=== PATIENT | male | born 1960 | race Caucasian/White ===

== ENCOUNTER 2021-04-16 21:29 | Emergency (ER) | payer BC, SELFPAY ==
[2021-04-16 21:30] VITALS: BP 149/99; PULSE 73; RESP 16; TEMP 36.6; O2SAT 97; BMI 24.8
[2021-04-16 22:03] VITALS: BP 155/96; PULSE 63; O2SAT 94
--- NOTE | 2021-04-16 22:05 | HMH.EDSKAF ---
ED Disposition Clinical Impression: Foreign body in forearm Qualifiers: Encounter type: initial encounter Laterality: left Qualified Code(s): S50.852A - Superficial foreign body of left forearm, initial encounter Disposition: Home, Self-Care Condition on Discharge: Good Instructions: DI for Skin Abscess Additional Instructions: use meds and sutures out 10 days and recheck if any problems Prescriptions: Sulfamethoxazole/Trimethoprim [Bactrim DS tablet] 1 each PO BID #20 tab [facility] cephALEXin [cephALEXin 500mg capsule*] 500 mg PO TID #30 cap Transmission [facility]: [facility] Referrals: Provider,Referral, [Primary Care Provider] - - Critical Care Critical Care Time: No Attestation: On 04/16/21, the high probability of a clinically significant, sudden or life threatening deterioration of the following system(s) required my full and direct attention, intervention and personal management. The time I documented below is in addition to time spent performing reported procedures but includes the following listed in this critical care notation. Medical Decision Making - Medical Records Medical records reviewed: Yes: I reviewed the patient's medical records. - Bart Inquiry Pt receiving controlled substance: No Vital Signs: 04/16/21 21:30 04/16/21 22:03 Temperature 97.9 F Temperature Source Oral Pulse Rate 63 Pulse Rate [Right] 73 Respiratory Rate 16 Blood Pressure 155/96 H Blood Pressure [Right Arm] 149/99 H Blood Pressure Mean [Right Arm] 115 Blood Pressure Source Automatic Cuff Blood Pressure Position Sitting 02 Sat by Pulse Oximetry 97 94 L Oxygen Delivery Method Room Air Orders (Tests/Meds): ED MEDICATIONS Discontinued Medications Generic Name Dose Route Start Last Admin Trade Name Freq PRN Reason Stop Dose Admin Tetanus/Reduced Diphtheria/Acell Pertussis 0.5 ml 04/16/21 21:56 04/16/21 22:04 Tet/Diphth/Pert-Adult 0.5ml Syringe IM 04/16/21 21:57 0.5 ml .ONCE ONE Administration ORDERS Category Date Time Status Wound Culture and Gram Stain Stat Micro 04/16/21 21:36 Received Skin/Abscess/FB HPI - General Chief complaint: Skin/Abscess/Foreign Body Stated complaint: spinder in left arm Time Seen by Provider: 04/16/21 21:40 Mode of Arrival: Ambulatory Source of Information: Patient, Medical Record Limitations: No Limitations Description of Symptoms (Recalled from ER Triage Doc. by RN): pt states was moving a washer yesterday and lost balance and lt arm hit wooden deck and a spliter in lt forearm - History of Present Illness HPI narrative: sphlinter lt forearm which pt had partially removed MD complaint: foreign body Onset (ago): day(s) Tetanus up to date: no Location: LUE Severity: moderate Associated symptoms: denies other symptoms Treatments prior to arrival: none - Related Data Previous Rx's Medication Instructions Recorded Sulfamethoxazole/Trimethoprim 1 each PO BID #20 tab 04/16/21 [Bactrim DS tablet] cephALEXin [cephALEXin 500mg 500 mg PO TID #30 cap 04/16/21 capsule*] Allergies Allergy/AdvReac Type Severity Reaction Status Date / Time No Known Allergies Allergy Verified 04/16/21 21:42 [facility] History - Hepatitis A Screen Drug use history?: No High risk sexual behaviors?: No History of sexually transmitted infection?: No Currently employed?: No Childcare worker?: No Do you have indoor plumbing?: Yes Do you have electricity?: Yes Attestation statement:: This patient has been screened for Hepatitis A risk factors. I have reviewed the patient's past medical history: Yes - Social History Smoking Status: Current every day smoker # Packs/Day (cigarettes): 1 Alcohol Intake: never Occupational Status: employed ROS Obtained: Yes All systems reviewed & no additional complaints - Constitutional Constitutional: Denies fever(s) - Eyes Eyes: Den
[2021-04-16 22:26] VITALS: BP 151/79; PULSE 64; RESP 16; TEMP 36.6; O2SAT 97
== END 2021-04-16 22:28 | disposition home or self-care (01) ==
PROVIDERS: Emergency Provider Emergency Medicine
DX: S50.852A Superficial foreign body of left forearm, initial encounter (principal); W45.8XXA Other foreign body or object entering through skin, initial encounter; W22.8XXA Striking against or struck by other objects, initial encounter; Y92.89 Other specified places as the place of occurrence of the external cause; Z23 Encounter for immunization; F17.210 Nicotine dependence, cigarettes, uncomplicated
CPT/HCPCS: 10120; 87070; 87205; 90715; 96372; 99283

== ENCOUNTER 2021-07-31 14:11 | Emergency (ER) | payer BC, SELFPAY ==
[2021-07-31 14:13] VITALS: BP 140/81; PULSE 56; RESP 16; TEMP 36.8; O2SAT 96; BMI 26.4
--- NOTE | 2021-07-31 14:27 | XR_ITS ---
PROCEDURE: XR HAND RT MIN 3V CLINICAL INDICATION: fall with hand pain COMPARISON: No exams were available for comparison FINDINGS: No fracture or dislocation. No lytic or blastic change. There is normal mineralization. The joint spaces are well-preserved. No significant degenerative/arthritic changes. No erosive changes evident. Other findings:None. IMPRESSION: No acute findings. Dictated by: Samson Hallman MD 07/31/2021 14:52 Samson Hallman MD in [place] 07/31/2021 14:52
--- NOTE | 2021-07-31 14:36 | XR_ITS ---
PROCEDURE: XR WRIST RT 2V CLINICAL INDICATION: right wrist pain COMPARISON: No exams were available for comparison FINDINGS: No fracture or dislocation. No lytic or blastic change. There is normal mineralization. The joint spaces are well-preserved. No significant degenerative/arthritic changes. No erosive changes evident. Other findings:There is a small well-circumscribed calcification lateral to the distal aspect of the scaphoid and could be due to an old injury. Sub cortical cystic changes are present involving distal aspect of ulna IMPRESSION: No acute finding. Possible old small avulsion injury at the scaphoid Subcortical cystic changes at distal aspect of the Dictated by: Samson Hallman MD 07/31/2021 15:19 Samson Hallman MD in [place] 07/31/2021 15:19
--- NOTE | 2021-07-31 14:38 | HMH.EDGENADL ---
ED Disposition Clinical Impression: Hand pain, right Disposition: Home, Self-Care Condition on Discharge: Good Instructions: DI for Hand Pain Additional Instructions: Please continue supportive care at home including Tylenol or ibuprofen. If your pain does not resolve within the next 5 to 7 days, please see your primary care doctor for reassessment with x-ray. If your condition worsens or any other concerns arise, please return to the emergency department for reassessment. You may also use ice, heat or elevation to help with your symptoms. Referrals: Provider,Referral, [Primary Care Provider] - - Critical Care Critical Care Time: No Attestation: On 07/31/21, the high probability of a clinically significant, sudden or life threatening deterioration of the following system(s) required my full and direct attention, intervention and personal management. The time I documented below is in addition to time spent performing reported procedures but includes the following listed in this critical care notation. Medical Decision Making - Bart Inquiry Pt receiving controlled substance: No Vital Signs: 07/31/21 14:13 07/31/21 16:56 Temperature 98.2 F 98.2 F Temperature Source Oral Pulse Rate 56 L Pulse Rate [Right] 56 L Respiratory Rate 16 16 Blood Pressure 140/81 Blood Pressure [Right Arm] 140/81 Blood Pressure Mean [Right Arm] 100 Blood Pressure Source [Right Arm] Automatic Cuff Blood Pressure Position [Right Arm] Sitting 02 Sat by Pulse Oximetry 96 Oxygen Delivery Method Room Air Room Air Orders (Tests/Meds): ED MEDICATIONS Discontinued Medications Generic Name Dose Route Start Last Admin Trade Name Patrickq PRN Reason Stop Dose Admin Acetaminophen 500 mg 07/31/21 14:37 07/31/21 15:23 Acetaminophen 500mg Tab PO 07/31/21 14:38 500 mg ONCE ONE Administration Ketorolac Tromethamine 15 mg 07/31/21 14:37 07/31/21 15:23 Ketorolac 30mg/Ml Vial IM 07/31/21 14:38 15 mg ONCE ONE Administration Medical Decision Narrative: Patient is a 61-year-old male presenting with a chief complaint of hitting his right hand on the sink during a fall while trying to catch himself. Differential diagnosis includes, but is not limited to, fracture, dislocation, contusion. On initial evaluation, patient is hemodynamically stable. Exam is significant for pain with palpation over the thumb and right wrist. He is neurovascularly intact. Patient was evaluated with x-rays of the right hand and wrist without acute findings or fracture. He was treated with p.o. ibuprofen and Tylenol for symptoms. Patient was counseled on supportive care and advised to see his primary care doctor should his symptoms not improve. Patient was discharged in a stable condition. General Adult HPI - General Chief complaint: PAIN Stated complaint: AO 1021, right hand pain Time Seen by Provider: 07/31/21 14:30 Mode of Arrival: Ambulatory Limitations: No Limitations Description of Symptoms (Recalled from ER Triage Doc. by RN): Pt advises he fell yesterday and caught himself with his right hand. Pt has some swelling to the thumb area on the right hand. Positive PMS and cap refill <3 - History of Present Illness HPI narrative: Teodoro is a 61yo M with no significant past medical history presenting w/cc of right hand and wrist pain s/p fall since yesterday evening. He states that he slipped at work yesterday and as he went to catch himself, he hit the thumb of his right hand and it has been painful ever since. He did not hit his head, no LOC. No other complaints. Denies blood thinner use. Onset (ago): day(s) (Right hand pain since yesteray) - Related Data Previous Rx's Medication Instructions Recorded Sulfamethoxazole/Trimethoprim 1 each PO BID #20 tab 04/16/21 [Bactrim DS tablet] cephALEXin [cephALEXin 500mg 500 mg PO TID #30 cap 04/16/21 capsule*] Allergies Allergy/AdvReac Type Severity Reaction Status Da
[2021-07-31 16:56] VITALS: BP 140/81; PULSE 56; RESP 16; TEMP 36.8; O2SAT 96
== END 2021-07-31 16:56 | disposition home or self-care (01) ==
PROVIDERS: Emergency Provider Emergency Medicine
DX: S60.221A Contusion of right hand, initial encounter (principal); W01.10XA Fall on same level from slipping, tripping and stumbling with subsequent striking against unspecified object, initial encounter; Y92.69 Other specified industrial and construction area as the place of occurrence of the external cause
CPT/HCPCS: 73100; 73130; 99282

== ENCOUNTER → 2021-12-29 16:00 | Outpatient (CLI) | payer BC, SELFPAY ==
[2021-12-30 10:12] LABS: Chloride 103 mmol/L (98-107)
[2021-12-30 10:13] LABS: Sodium 138 mmol/L (136-145)
[2021-12-30 10:15] LABS: Alanine Aminotransferase 25 U/L (12-78); Alkaline Phosphatase 94 U/L (38-126); Aspartate Amino Transferase 61 U/L (17-59); Bilirubin,Total 0.9 mg/dl (0.2-1.3); Blood Urea Nitrogen 12 mg/dl (9-20); Carbon Dioxide 27 mmol/L (22.0-30.0); Cholesterol 132 mg/dl (140-200); Estimated Glomerular Filt Rate 99 ml/min (>60); GFR (African American) 120 ML/MIN (>60); Triglycerides 38 mg/dl (30-150); VLDL Cholesterol 8 mg/dL (0-40)
[2021-12-30 10:16] LABS: Albumin Level 4.2 g/dl (3.5-5.0); Albumin/Globulin Ratio 1.5 (1.1-1.8); Calcium 8.8 mg/dl (8.4-10.2); Chol/HDL Ratio 2.3 (1-3.5); Globulin 2.8 g/dL (1.3-3.2); Glucose 116 mg/dl (74-100); HDL Cholesterol 58 mg/dl (40-60)
[2021-12-30 10:27] LABS: Direct LDL Cholesterol 61.12 mg/dL (100-129)
[2021-12-30 10:32] LABS: Free T4 (Free Thyroxine) 0.93 ng/dl (0.78-2.19)
[2021-12-30 10:46] LABS: Basophils # 0.1 K/mm3 (0-0.2); Basophils % 1.2 % (0.1-2.0); Eosinophils # 0.1 K/mm3 (0.0-0.4); Eosinophils % 2.4 % (0.1-12.0); Hematocrit 55.5 % (42.0-52.0); Hemoglobin 17.3 g/dL (14.1-18.0); Lymphocytes # 1.4 K/mm3 (0.7-4.5); Lymphocytes % 24.3 % (10-50); Mean Corpuscular HGB Conc 31.1 g/dL (31.8-35.4); Mean Corpuscular Hemoglobin 31.4 pg (27.0-31.2); Mean Corpuscular Volume 101.1 fl (80-94); Monocytes # 0.5 K/mm3 (0.1-1.0); Monocytes % 7.8 % (1.7-9.3); Neutrophils # 3.8 K/mm3 (1.8-7.8); Neutrophils % 64.3 % (37.0-80.0); Platelet Count 142 K/mm3 (142-424); Red Blood Count 5.49 M/mm3 (4.60-6.20); Red Cell Distribution Width 14.3 % (11.5-17.5); White Blood Count 5.9 K/mm3 (4.8-10.8)
[2021-12-30 10:47] LABS: Thyroid Stimulating Hormone 1.19 uIU/mL (0.465-4.68)
[2021-12-30 11:25] LABS: Anion Gap 12.3 mEq/L (5-15); Potassium 4.3 mmoL/L (3.5-5.1)
== END ==
PROVIDERS: Visit Provider Emergency Medicine
DX: R53.83 Other fatigue (principal)
CPT/HCPCS: 80053; 80061; 84439; 84443; 85025

== ENCOUNTER → 2022-01-13 12:05 | Outpatient (CLI) | payer BC, SELFPAY ==
[2022-01-13 15:25] LABS: Vitamin B12 316 pg/mL (239-931)
[2022-01-13 15:27] LABS: Folate 4.16 ng/mL
[2022-01-13 15:28] LABS: Hemoglobin A1C 5.5 % (4.0-6.0)
== END ==
PROVIDERS: Visit Provider Physician Assistant
DX: R73.9 Hyperglycemia, unspecified (principal); R71.8 Other abnormality of red blood cells
CPT/HCPCS: 36415; 82607; 82746; 83036

== ENCOUNTER → 2023-06-08 23:31 | Outpatient (CLI) | payer BC, SELFPAY ==
[2023-06-08 19:57] LABS: Basophils % 0.4 % (0.1-2.0); Eosinophils # 0.1 K/mm3 (0.0-0.4); Eosinophils % 1.5 % (0.1-12.0); Hematocrit 52.1 % (42.0-52.0); Hemoglobin 17.1 g/dL (14.1-18.0); Lymphocytes # 1.8 K/mm3 (0.7-4.5); Mean Corpuscular HGB Conc 32.8 g/dL (31.8-35.4); Mean Corpuscular Hemoglobin 31.4 pg (27.0-31.2); Mean Corpuscular Volume 95.6 fl (80-94); Mean Platelet Volume 9.3 fl (7.4-10.4); Monocytes # 0.5 K/mm3 (0.1-1.0); Neutrophils # 2.5 K/mm3 (1.8-7.8); Platelet Count 149 K/mm3 (142-424); Red Blood Count 5.46 M/mm3 (4.60-6.20); Red Cell Distribution Width 12.9 % (11.5-17.5); White Blood Count 4.8 K/mm3 (4.8-10.8)
[2023-06-08 20:47] LABS: Alanine Aminotransferase 78 U/L (12-78); Alkaline Phosphatase 128 U/L (38-126); Anion Gap 19.7 mEq/L (5-15); Aspartate Amino Transferase 138 U/L (17-59); Bilirubin,Direct 0.4 mg/dl (0.0-0.4); Bilirubin,Indirect 0.8 mg/dL (0.0-0.9); Bilirubin,Total 1.2 mg/dl (0.2-1.3); Bilirubin,Unconjugated 0.8 mg/dL (0.0-1.1); Blood Urea Nitrogen 12 mg/dl (9-20); Calcium 10.2 mg/dl (8.4-10.2); Carbon Dioxide 25 mmol/L (22.0-30.0); Chloride 100 mmol/L (98-107); Chol/HDL Ratio 2.9 (1-3.5); Cholesterol 165 mg/dl (140-200); Estimated Glomerular Filt Rate 98 ml/min (>60); GFR (African American) 119 ML/MIN (>60); Glucose 93 mg/dl (74-100); HDL Cholesterol 56 mg/dl (40-60); Potassium 4.7 mmoL/L (3.5-5.1); Sodium 140 mmol/L (136-145); Triglycerides 99 mg/dl (30-150); VLDL Cholesterol 20 mg/dL (0-40)
[2023-06-08 20:57] LABS: Direct LDL Cholesterol 80.31 mg/dL (100-129)
[2023-06-08 21:05] LABS: 25-OH Vitamin D, Total 30.9 ng/mL (30-100); T4 (Thyroxine) 10.9 ug/dl (5.53-11.0)
[2023-06-08 21:18] LABS: Prostate Specific Ag Screen 0.5 ng/ml (0.0-4.0)
[2023-06-09 00:29] LABS: Hemoglobin A1C 5.6 % (4.0-6.0)
== END ==
PROVIDERS: PCP Emergency Medicine; Visit Provider Emergency Medicine
DX: I25.10 Atherosclerotic heart disease of native coronary artery without angina pectoris (principal); B19.20 Unspecified viral hepatitis C without hepatic coma; Z12.5 Encounter for screening for malignant neoplasm of prostate
CPT/HCPCS: 80048; 80061; 80076; 82306; 83036; 84436; 84443; 85025; G0103

== ENCOUNTER → 2023-09-07 07:12 | Outpatient (CLI) | payer BC, SELFPAY ==
[2023-09-07 19:18] LABS: Basophils # 0.1 K/mm3 (0-0.2); Basophils % 0.9 % (0.1-2.0); Eosinophils # 0.1 K/mm3 (0.0-0.4); Eosinophils % 1.8 % (0.1-12.0); Hematocrit 45.5 % (42.0-52.0); Hemoglobin 15.4 g/dL (14.1-18.0); Lymphocytes # 1.9 K/mm3 (0.7-4.5); Lymphocytes % 31.3 % (10-50); Mean Corpuscular HGB Conc 33.7 g/dL (31.8-35.4); Mean Corpuscular Hemoglobin 31.7 pg (27.0-31.2); Mean Corpuscular Volume 94.1 fl (80-94); Mean Platelet Volume 10.5 fl (7.4-10.4); Monocytes # 0.5 K/mm3 (0.1-1.0); Monocytes % 7.9 % (1.7-9.3); Neutrophils # 3.6 K/mm3 (1.8-7.8); Neutrophils % 58.1 % (37.0-80.0); Platelet Count 205 K/mm3 (142-424); Red Blood Count 4.84 M/mm3 (4.60-6.20); Red Cell Distribution Width 13.6 % (11.5-17.5); White Blood Count 6.1 K/mm3 (4.8-10.8)
[2023-09-07 19:43] LABS: Alanine Aminotransferase 30 U/L (12-78); Albumin Level 4.5 g/dl (3.5-5.0); Albumin/Globulin Ratio 1.3 (1.1-1.8); Alkaline Phosphatase 87 U/L (38-126); Anion Gap 14.8 mEq/L (5-15); Aspartate Amino Transferase 68 U/L (17-59); Bilirubin,Total 0.4 mg/dl (0.2-1.3); Blood Urea Nitrogen 7 mg/dl (9-20); Calcium 8.9 mg/dl (8.4-10.2); Carbon Dioxide 26 mmol/L (22.0-30.0); Chloride 102 mmol/L (98-107); Estimated Glomerular Filt Rate 137 ml/min (>60); GFR (African American) 166 ML/MIN (>60); Globulin 3.5 g/dL (1.3-3.2); Glucose 108 mg/dl (74-100); Potassium 3.8 mmoL/L (3.5-5.1); Sodium 139 mmol/L (136-145)
[2023-09-09 11:18] LABS: HIV Screen 4th Generation wRfx Non Reactive (Non Reactive); Hep A Ab, Total Positive (Negative); Hep B Core Ab, Total Positive (Negative); Hep B Surface Ab, Qual Reactive (.)
[2023-09-12 16:18] LABS: HCV Genotype Charge YES; Hepatitis C Genotype 1b (.)
[2023-09-12 21:34] LABS: Hepatitis B Surface Antigen Negative; Hepatitis C Antibody Reactive
== END ==
PROVIDERS: PCP Family Medicine; Visit Provider Family Medicine
DX: B19.20 Unspecified viral hepatitis C without hepatic coma (principal)
CPT/HCPCS: 80053; 85025; 86703; 86704; 86706; 86708; 87340; 87380; 87522; 87902; G0432

== ENCOUNTER → 2023-09-09 08:38 | Outpatient (CLI) | payer BC, SELFPAY ==
--- NOTE | 2023-09-09 | CA_ITS ---
APPROVED REPORT Exam: Exercise Treadmill Technologist: Courtney Pfeiffer, Ht: 6 ft 0 in Wt: 199 lbs BSA: 2.13 m2 HR: 63 bpm BP: 124/74 mmHg Rhythm: NSR Medical History Medications: Aspirin,,,,, Atorvastatin,,,,, CloPIdogrel,,,,, BisOPROLOL Fumarate,,,,, Valium,,,,, Nitroglycerin,,,,, BuPRenorphinE HCI,,,,, Stress Test Details Test: Exercise stress testing was performed using a modified Pedro protocol. HR Resting HR: 63 bpm Max Heart Rate (APMHR): 159 bpm Max HR Achieved: 130 bpm Target HR (85% APMHR): 135 bpm % of APMHR: 82 Recovery HR: 77 bpm HR response to stress: Borderline blunted HR response to stress BP Resting BP: 124.0/74.0 mmHg Max BP: 188/90 mmHg Recovery BP: 136.0/77.0 mmHg BP response to stress: Normal blood pressure response to stress. ECG Resting ECG: NSR, ST-T abns inferiorly & laterally Stress EC.[address] depression Arrhythmia: PACs Recovery ECG: Return to baseline within 3 minutes of recovery Recovery Arrhythmia: PACs Clinical Exercise duration: 06:22 min Highest Stage Achieved: II Exercise capacity: 7.0 METs Overall Exercise Capacity for Age: Average Stress ECG Conclusion The patient was able to exercise for a total of 6:22 on Pedro Protocol with stage II held to completion. He achieved a total of 7 METS. He has average exercise capacity compared to age and sex matched peers. Max HR: 130 % of PM: 82% Max BP: 188/91 METs: 7.0 Test stopped due to: SOA, fatigue Symptoms: chest pressure during exercise. Arrhythmias/Ectopy: Occasional PAC. ST-T Changes: 1.[address] depression Conclusion: Borderline blunted HR response to exercise in the setting of beta-dnaielle use. Average exercise capacity. EKG changes consistant with ischemia. Myoview images reported separately. Test Summary REST . . . . . . . Sitting REST . . . . . . . Standing REST 03:56 0.0 0.0 72 . 119/ 72 . . Stage 1 01:00 10.0 1.7 93 . . . . Stage 1 02:00 10.0 1.7 107 . . . . Stage 1 03:00 10.0 1.7 111 . 188/ 90 . . Stage 2 . . . . . . . Stage held Stage 2 . . . . . . . Stage held Stage 2 . . . . . . . Stage resumed Stage 2 01:00 12.0 2.5 121 . . . . Stage 2 . . . . . . . Stage held Stage 2 02:00 12.0 2.5 127 . . . . Stage 2 . . . . . . . Cardiolite injected Stage 2 03:00 12.0 2.5 129 . . . . Stage 2 . . . . . . . Stage resumed Stage 2 03:22 12.0 2.5 130 . . . Stop exercise at 06:22 RECOVERY 01:00 0.0 0.0 111 . . . . RECOVERY 02:00 0.0 0.0 93 . 188/ 91 . . RECOVERY 03:00 0.0 0.0 76 . 188/ 91 . . RECOVERY 04:00 0.0 0.0 81 . 152/ 78 . . RECOVERY 05:00 0.0 0.0 72 . 152/ 78 . . RECOVERY 05:24 0.0 0.0 77 . 136/ 77 . . Electronically signed by : Olesya Asif MD 09/15/2023 10:59:29
--- NOTE | 2023-09-09 08:38 | CA_ITS ---
APPROVED REPORT EXAM: Comprehensive 2D, Doppler, and color-flow Echocardiogram Coffee Roaster: Susu Medina RDCS Ht: 6 ft 0 in Wt: 193lbs BSA: 2.10 BP: 162/90 mmHg Indications: CP CAD HTN SMOKER M-Mode Dimensions RVDd 3.26 cm (0.9-2.6) LA Diam 3.62 cm (1.9-4.0) LVDd 5.83 cm (3.5-5.7) LVDs 3.86 cm (3.5-5.7) IVSd 0.82 cm (0.6-1.1) PWd 0.82 cm (0.6-1.1) EF (Teich) 61.80% FS 33.80% EDV (Teich) 168.50 mL TAPSE 2.02 (<1.7) ESV (Teich) 64.30 mL LV Diastology E Decel Time 353 (160-240 msec) E/A Ratio 0.8 Mitral Valve MV E Max Saw. 55.0 (40-130 cm/s) MV A Velocity 73.0 (40-130 cm/s) E/A Ratio 0.76 MV PHT 103.0 ms Left Ventricle The left ventricle is normal size. The left ventricular systolic function is normal. The left ventricular ejection fraction is within the normal range. There is normal left ventricular wall thickness. There is normal LV segmental wall motion. The left ventricular diastolic function is normal. LVEF is 60%. Right Ventricle The right ventricle is normal size. The right ventricular systolic function is normal. Atria The left atrium size is normal. The right atrium size is normal. There is no Doppler evidence of interatrial shunt. Aortic Valve The aortic valve is normal in structure. There is no aortic valvular stenosis. No aortic regurgitation is present. Mitral Valve The mitral valve is normal in structure. No evidence of mitral valve stenosis. Trace mitral regurgitation. Tricuspid Valve The tricuspid valve leaflets are thin and pliable. Trace tricuspid regurgitation. There is insufficient TR jet to estimate RVSP. Pulmonic Valve The pulmonary valve is normal in structure. Trace pulmonic regurgitation. Great Vessels The aortic root is normal in size. The ascending aorta is normal in size. IVC is normal in size and collapses >50% with inspiration. Pericardium There is no pericardial effusion. Other Information Study Quality: Adequate Conclusion Normal biventricular systolic function. No significant valvular stenosis or regurgitation. Electronically signed by : Olesya Asif MD 09/15/2023 23:07:31
--- NOTE | 2023-09-09 09:20 | NM_ITS ---
APPROVED REPORT Exam: Nuclear Stress Test Indication: HTN, TOB USE, FM HX, C,P., SOB Patient Location: Outpatient Stress Tech: Courtney Noonan [place] Tech:Dionne Krueger ANUPAM RT (R)(N)(M) Ht: 6 ft 1 in Wt: 195 lbs Bra Size: Resting and stress imaging in supine and prone positions demonstrate HR: 72 bpm BP: 119/72 mmHg BSA: 2.13 m2 Rhythm: NSR TID: 1.28 BMI: 25.7 History: HTN, TOB USE, FM HX, C,P., SOB Procedure: Patient exercised on Pedro protocol 6:22 minutes and sec, resting heart rate 72 bpm, resting blood pressure 119/72 mmHg, with exercise maximum heart rate achived was 130 bpm which is 82 % of the maximum predicted heart rate and blood pressure was 188/90 mmHg. Test was stopped due to FATIGUE. Patient denied any complaint of chest pain. Patient has Average exercise capacity, achieved 7.0 METs of workload on treadmill, the blood pressure response to exercise was Normal. Cardiac Stress and Resting SPECT Images: Cardiac Stress and Resting SPECT images were obtained using technetium 99m Myoview 30.1 mCi stress and 10.65 mCi at rest. Resting and stress imaging in supine and prone positions demonstrate a medium sized, moderate, partially reversible perfusion defect in the mid to distal inferior LV wall. There is increased transient ischemic dilatation ratio (TID 1.28), suggestive of possible multivessel disease or balanced ischemia. Gated imaging demonstrates normal global LV systolic function. There is mild hypokinesis of the distal inferior LV wall. LVEF is calculated at 57%. Conclusion: Medium sized, moderate, partially reversible perfusion defect in the mid to distal inferior LV wall. There is increased transient ischemic dilatation ratio (TID 1.28), suggestive of possible multivessel disease or balanced ischemia. Gated imaging demonstrates normal global LV systolic function. There is mild hypokinesis of the distal inferior LV wall. LVEF is calculated at 57%. Electronically signed by : Olesya Asif MD 09/15/2023 14:13:32
== END ==
LOC: RAD 08:38
PROVIDERS: PCP Internal Medicine; Visit Provider Internal Medicine
DX: R07.9 Chest pain, unspecified (principal); I20.89 Other forms of angina pectoris; R53.83 Other fatigue
CPT/HCPCS: 78452; 93017; 93018; 93306; A9502

== ENCOUNTER 2023-10-27 20:20 | Outpatient (CLI) | payer MEDICARE, BC, SELFPAY ==
[2023-10-27 20:41] LABS: Amphetamine/Metha Screen,Urine Negative ng/ml (<1000)
[2023-10-27 20:42] LABS: Barbiturates Screen,Urine Negative ng/ml (<200)
[2023-10-27 20:43] LABS: Benzodiazepines Screen,Urine Negative ng/ml (<200); Cannabinoid Screen,Urine Negative ng/ml (<50)
[2023-10-27 20:44] LABS: Cocaine Screen,Urine Negative ng/ml (<300)
[2023-10-27 20:45] LABS: Methadone Screen,Urine Negative ng/ml (<300); Opiate Screen,Urine Negative ng/ml (<300)
[2023-10-27 20:48] LABS: Phencyclidine Screen,Urine Negative ng/ml (<25)
[2023-11-04 11:36] LABS: Alprazolam Negative (Cutoff=100); Benzodiazepines Negative ng/mL (Cutoff=100); Clonazepam Negative (Cutoff=100); Flurazepam Negative (Cutoff=100); Lorazepam Negative (Cutoff=100); Midazolam Negative (Cutoff=100); Temazepam Negative (Cutoff=100); Triazolam Negative (Cutoff=100)
== END 2023-10-27 23:59 ==
LOC: LAB.DROPOF 20:21
PROVIDERS: PCP Nurse Practitioner Family; Visit Provider Nurse Practitioner Family
DX: F41.9 Anxiety disorder, unspecified (principal); Z79.899 Other long term (current) drug therapy
CPT/HCPCS: 80307; 80346